=== PATIENT | male | born 1930 | race Caucasian/White ===

== ENCOUNTER 2018-07-25 14:59 | Inpatient (IN) ==
[2018-07-25] MEDS ORDERED: Acetaminophen 325 MG Tablet PO ONE (16:14)
--- NOTE | 2018-07-25 17:11 | ED ---
HPI General Chief Complaint: Fall Stated Complaint: Fall Back Pain/Bruising xSunday Time Seen by Provider: 07/25/18 15:28 Source: patient Mode of arrival: ambulatory Limitations: no limitations History of Present Illness HPI Narrative: 88-year-old male presents to the emergency room with his mechanic and welder for evaluation of back pain after falling 2 days ago. Patient was using his walker to go up a step at a restaurant when he lost his balance and fell backwards. Landed mostly on his mid back but also hit the back of his head on concrete. States fall was witnessed by son but there is no loss of consciousness. Patient has early Alzheimer's and is not the best historian. His mechanic and welder states since then he has appeared to be in pain memory movement. He has been receiving Aleve which his primary care physician recommended he stop taking. He saw his PCP today and they recommended he come here for x-rays of his back which is where his greatest pain is. He denies paresthesias or loss of bowel or bladder control. He takes a baby aspirin daily. Only history of hypertension and hypercholesterolemia. MD complaint: Reports fall Onset (ago): day(s) Fall from: standing Fall witnessed: yes, by family Loss of consciousness: none Prolonged down time: no Symptoms prior to fall: Reports none Context: Reports tripped/slipped Location of injury: Reports head and back Severity: mild Quality: Reports aching and throbbing Associated symptoms (after fall): Reports denies Related Data Home Medications Medication Instructions Recorded Confirmed Crestor 07/25/18 aspirin 81 mg PO DAILY 07/25/18 07/25/18 losartan 07/25/18 Allergies Allergy/AdvReac Type Severity Reaction Status Date / Time No Known Allergies Allergy Verified 07/25/18 15:08 Review of Systems ROS: all other systems reviewed are negative PMFSH Medical History Medical History HTN (hypertension) (Acute) High cholesterol (Acute) History of skin cancer (Acute) Surgical History Surgical History History of eye surgery (Acute) Social History Social History Substance History: No History of Abuse Smoking Status: Former smoker How Often Do You Have a Drink Containing Alcohol: 2 to 4 times a month Immunization History Tetanus Immunization: Unsure Exam Narrative Exam Narrative: GENERAL: Well-nourished, elderly male in no acute distress. Afebrile. Ambulatory. SKIN: Focused skin assessment warm/dry. Superficial abrasion over the thoracic spine. Small hematoma of the back of the parietal scalp. HEAD: Normocephalic. EYES: No scleral icterus. No injection or drainage. NECK: Supple, trachea midline. No JVD or lymphadenopathy. Full range of motion. CARDIOVASCULAR: Regular rate and rhythm without murmurs, gallops, or rubs. RESPIRATORY: Breath sounds equal bilaterally. No accessory muscle use. MUSCULOSKELETAL: No cyanosis, or edema. BACK: Tenderness over the thoracic spine. No obvious deformity. No CVA tenderness. No lumbar tenderness. NEUROLOGICAL: Awake and alert. Cranial nerves II through XII intact. Motor and sensory grossly within normal limits. Normal speech. No pronator drift in upper or lower extremities. Five out of 5 muscle strength in all muscle groups. Normal finger to nose test. Normal heel to joseph test. Course Initial Documented Vital Signs Temperature 98.4 F 07/25/18 15:03 Pulse Rate 99 H 07/25/18 15:03 Respiratory Rate 16 07/25/18 15:03 Blood Pressure 127/58 L 07/25/18 15:03 Pulse Oximetry 97 07/25/18 15:03 Last Documented Vital Signs Temperature 98.4 F 07/25/18 15:03 Pulse Rate 94 H 07/25/18 22:44 Respiratory Rate 18 07/25/18 22:44 Blood Pressure 150/63 H 07/25/18 22:44 Pulse Oximetry 94 L 07/25/18 22:44 Medical Decision Making MDM Narrative Medical decision making narrative: 88 year-old male with history of early Alzheimer's, hypertension, and hypercholesterolemia presents to the emergency room with his mechanic and welder for evaluation of back pain after mechanical fall 2 days ago. Patient states he tripped on a step and fell backwards landing directly on his mid back. He also hit the back of his head. There was no loss of consciousness. He went to his primary care physician for checkup today and his PCP recommended to come to the emergency room for evaluation and imaging of his back given how tender he was. Physical exam is reassuring. No focal neurological deficits. Patient gets occasionally confused which according to his mechanic and welder and son are consistent with his baseline. He has no significant midline tenderness of the spine. Negative straight leg raise bilaterally. There is a small posterior parietal scalp hematoma that is tender to palpation. CT of the head, neck, and x-rays of thoracic spine ordered. CT of the head shows 1.5 cm focal hematoma at the posterior medial right parietal lobe without midline shift. The cervical spine CT and thoracic x-rays are negative for acute abnormality. I spoke to the neurosurgeon on-call, Dr. Rodney, who recommends admission with consultation to his service. I spoke to the trauma surgeon, Dr. Weinstein, who recommends CT of the chest and abdomen. CT of the chest and abdomen are negative for acute traumatic injury including of the spine , multiple chronic findings noted. He will be transferred to the main hospital under the trauma service. Because patient is stable with no significant neurological findings, he can be admitted to the floor rather than the intensive care unit. He and his son understand and agree to plan. Medical Screen Exam Complete: Yes Emergency Medical Condition: Yes Differential Diagnosis Differential Diagnosis: Contusion, abrasion, fracture, strain, sprain Lab Data Result diagrams: 07/25/18 18:00 07/25/18 18:00 Lab Results 07/25/18 07/25/18 07/25/18 Range/Units 18:00 18:00 18:00 CBC w Diff Auto diff final WBC 7.4 (4.0-11.0) th/mm3 RBC 4.48 L (4.50-5.90) mil/mm3 Hgb 14.3 (13.0-17.0) gm/dL Hct 41.3 (39.0-51.0) % MCV 92.2 (80.0-100.0) fL MCH 32.0 (27.0-34.0) pg MCHC 34.7 (32.0-36.0) % RDW 13.3 (11.6-17.2) % Plt Count 201 (150-450) th/mm3 MPV 7.8 (7.0-11.0) fL Neut % (Auto) 67.4 (16.0-70.0) % Lymph % (Auto) 19.0 (9.0-44.0) % Morrison % (Auto) 9.9 H (0.0-8.0) % Eos % (Auto) 3.4 (0.0-4.0) % Baso % (Auto) 0.3 (0.0-2.0) % Neut # (Auto) 5.0 (1.8-7.7) th/mm3 Lymph # (Auto) 1.4 (1.0-4.8) th/mm3 Morrison # (Auto) 0.7 (0.0-0.9) th/mm3 Eos # (Auto) 0.3 (0.0-0.4) th/mm3 Baso # (Auto) 0.0 (0.0-0.2) th/mm3 WBC Differential . Differential Comment . PT 11.2 (9.8-11.6) sec INR 1.1 Ratio APTT 27.9 (23.4-31.7) sec Sodium 142 (136-145) meq/L Potassium 4.0 (3.5-5.1) meq/L Chloride 107 (98-107) meq/L Carbon Dioxide 27.2 (21.0-32.0) meq/L Anion Gap 8 (5-15) meq/L BUN 22 H (7-18) mg/dL Creatinine 0.88 (0.60-1.30) mg/dL Estimated GFR 82 L (>89) mL/min Random Glucose 87 (74-106) mg/dL Calcium 9.3 (8.5-10.1) mg/dL Total Bilirubin 1.6 H (0.2-1.0) mg/dL AST 46 H (15-37) U/L ALT 33 (12-78) U/L Alkaline Phosphatase 83 (45-117) U/L Total Protein 7.0 (6.4-8.2) g/dL Albumin 3.9 (3.4-5.0) g/dL Urine Color (Yellw/Straw) Urine Clarity (Clear) Urine pH (5.0-8.5) Ur Specific Holt (1.002-1.035) Urine Protein (Neg-Trace) mg/dL Urine Glucose (UA) (Negative) mg/dL Urine Ketones (Negative) mg/dL Urine Occult Blood (Negative) Urine Nitrate (Negative) Urine Bilirubin (Negative) Urine Urobilinogen (Less than 2) mg/dL Ur Leukocyte Esterase (Negative) Urine RBC (0-3) /hpf Urine WBC (0-5) /hpf Ur Squamous Epith Cells (0-5) /hpf Micro UA Comment Ur Microscopic Review Urine Culture Comments 07/25/18 Range/Units 18:00 CBC w Diff WBC (4.0-11.0) th/mm3 RBC (4.50-5.90) mil/mm3 Hgb (13.0-17.0) gm/dL Hct (39.0-51.0) % MCV (80.0-100.0) fL MCH (27.0-34.0) pg MCHC (32.0-36.0) % RDW (11.6-17.2) % Plt Count (150-450) th/mm3 MPV (7.0-11.0) fL Neut % (Auto) (16.0-70.0) % Lymph % (Auto) (9.0-44.0) % Morrison % (Auto) (0.0-8.0) % Eos % (Auto) (0.0-4.0) % Baso % (Auto) (0.0-2.0) % Neut # (Auto) (1.8-7.7) th/mm3 Lymph # (Auto) (1.0-4.8) th/mm3 Morrison # (Auto) (0.0-0.9) th/mm3 Eos # (Auto) (0.0-0.4) th/mm3 Baso # (Auto) (0.0-0.2) th/mm3 WBC Differential Differential Comment PT (9.8-11.6) sec INR Ratio APTT (23.4-31.7) sec Sodium (136-145) meq/L Potassium (3.5-5.1) meq/L Chloride (98-107) meq/L Carbon Dioxide (21.0-32.0) meq/L Anion Gap (5-15) meq/L BUN (7-18) mg/dL Creatinine (0.60-1.30) mg/dL Estimated GFR (>89) mL/min Random Glucose (74-106) mg/dL Calcium (8.5-10.1) mg/dL Total Bilirubin (0.2-1.0) mg/dL AST (15-37) U/L ALT (12-78) U/L Alkaline Phosphatase (45-117) U/L Total Protein (6.4-8.2) g/dL Albumin (3.4-5.0) g/dL Urine Color Yellow (Yellw/Straw) Urine Clarity Clear (Clear) Urine pH 5.5 (5.0-8.5) Ur Specific Holt 1.025 (1.002-1.035) Urine Protein Negative (Neg-Trace) mg/dL Urine Glucose (UA) Negative (Negative) mg/dL Urine Ketones Negative (Negative) mg/dL Urine Occult Blood Negative (Negative) Urine Nitrate Negative (Negative) Urine Bilirubin Negative (Negative) Urine Urobilinogen 1.0 (Less than 2) mg/dL Ur Leukocyte Esterase Negative (Negative) Urine RBC 0-3 (0-3) /hpf Urine WBC 6-8 H (0-5) /hpf Ur Squamous Epith Cells 0-5 (0-5) /hpf Micro UA Comment Culture not ind Ur Microscopic Review Microscopic reviewed Urine Culture Comments Culture not ind Imaging Data Radiologist's impression: Cervical Spine CT 07/25/18 16:39 CONCLUSION: 1. No fracture. 2. Advanced multilevel degenerative changes. 3. Moderate central protrusion at C3-4 causing mild/moderate canal stenosis. Head CT 07/25/18 16:39 CONCLUSION: 1. 1.5 cm focal hematoma at the posterior medial right parietal lobe. 2. Age-related atrophy. . Thoracic Spine X-Ray 07/25/18 16:39 CONCLUSION: No acute abnormality seen. Abdomen/Pelvis CT 07/25/18 20:23 CONCLUSION: 1. No acute traumatic abnormality demonstrated within the abdomen or pelvis. 2. Nonacute findings as described. Chest CT 07/25/18 20:23 CONCLUSION: 1. No evidence of acute traumatic injury of the chest. 2. Mild dependent atelectasis of both lungs. 3. Coronary artery calcification. Mild cardiomegaly. Discharge Plan Discharge Disposition Patient Disposition: Transfer To [facility] [place] Discharge Condition Condition: Stable Discharge Order Discharge Orders: ED Use Only Admit Order (Routine); Ordered 07/25/18 Ordered By: Vivienne Valdovinos Physicians Team ED Provider: Cornelius López ED Midlevel Provider: Vivienne Valdovinos Primary Care Provider: Jessica Lee Attending Provider: Pat Weinstein Other Providers: Fredis Rodney Discharge Interventions Interventions: Vital Signs Last Done: 07/25/18 20:28 Status ED Status: Admitted Patient
--- NOTE | 2018-07-25 17:20 | XR ---
EXAM DATE: 07/25/2018 5:15 PM EST AGE/SEX: 88 years / Male INDICATIONS: Upper back pain, post fall. CLINICAL DATA: This is the patient's initial encounter. Patient reports that signs and symptoms have been present for 3 days and indicates a pain score of 8/10. MEDICAL/SURGICAL HISTORY: None. None. COMPARISON: POI, CT UROGRAM, 10/30/2015. . FINDINGS: The thoracic vertebral bodies appear normally aligned. There appear to be syndesmophytes throughout t he thoracic spine raising the possibility of ankylosing spondylitis. The disc spaces appear preserved . 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 CONCLUSION: No acute abnormality seen. Electronically signed by: Sang Mderano MD 07/25/2018 5:18 PM EST
--- NOTE | 2018-07-25 17:49 | CT ---
EXAM DATE: 07/25/2018 5:39 PM EST AGE/SEX: 88 years / Male INDICATIONS: Fell and hit back of head. CLINICAL DATA: This is the patient's initial encounter. Patient reports that signs and symptoms have been present for 2 days and indicates a pain score of 8/10. MEDICAL/SURGICAL HISTORY: Hypercholesterolemia. Hypertension. Skin cancer. . Eye surgery. RADIATION DOSE: 66.57 CTDI (mGy) COMPARISON: None. TECHNIQUE: CT of the head without contrast. Using automated exposure control and adjustment of the mA and/or kV according to patient size, radiation dose was kept as low as reasonably achievable to ob tain optimal diagnostic quality images. DICOM format image data is available electronically for revi ew and comparison. FINDINGS: Cerebrum: There is a focal 1.5 cm area of increased density seen at the posterior medial right parie rosaura lobe concerning for a small focal area of hemorrhage. The ventricles and cortical sulci are widen ed. No evidence of midline shift, mass lesion, or acute infarction. No extraaxial fluid collection s are seen. Posterior Fossa: The cerebellum and brainstem are intact. The 4th ventricle is midline. The cerebe llopontine angle is unremarkable. Extracranial: The visualized portion of the orbits is intact. Skull: The calvaria is intact. No evidence of skull fracture. CONCLUSION: 1. 1.5 cm focal hematoma at the posterior medial right parietal lobe. 2. Age-related atrophy. . Electronically signed by: Sang Medrano MD 07/25/2018 5:47 PM EST
--- NOTE | 2018-07-25 17:58 | CT ---
EXAM DATE: 07/25/2018 5:52 PM EST AGE/SEX: 88 years / Male INDICATIONS: Fell and hit back of head. CLINICAL DATA: This is the patient's initial encounter. Patient reports that signs and symptoms have been present for 2 days and indicates a pain score of 8/10. MEDICAL/SURGICAL HISTORY: Hypercholesterolemia. Hypertension. Skin cancer. . Eye surgery. RADIATION DOSE: 26.64 CTDI (mGy) COMPARISON: No prior exams available for comparison. TECHNIQUE: Contiguous axial images were obtained using helical multirow detector technique. The vol umetric data was post-processed with multiplanar reconstruction in oblique axial, sagittal, and coron al planes. Using automated exposure control and adjustment of the mA and/or kV according to patient s ize, radiation dose was kept as low as reasonably achievable to obtain optimal diagnostic quality lupis ges. DICOM format image data is available electronically for review and comparison. FINDINGS: Vertebrae: Normal vertebral body height. Advanced multilevel degenerative changes. Multiple anterior bridging osteophytes. Alignment: Normal. No subluxation. C2-3: The bony spinal canal is normal in size. No evidence of disc bulge or herniation. The neural foramina are bilaterally patent. C3-4: Moderate central disc protrusion abuts the ventral thecal sac and causes mild/moderate canal s tenosis. Moderate bilateral neural foraminal narrowing.. C4-5: The bony spinal canal is normal in size. No evidence of disc bulge or herniation. Moderate bi lateral neural foraminal narrowing. C5-6: The bony spinal canal is normal in size. No evidence of disc bulge or herniation. Moderate bi lateral neural foraminal narrowing. C6-7: Posterior disc osteophyte complex abuts the ventral thecal sac. No canal stenosis. Moderate bi lateral neural foraminal narrowing. C7-T1: The bony spinal canal is normal in size. No evidence of disc bulge or herniation. The neura l foramina are bilaterally patent. CONCLUSION: 1. No fracture. 2. Advanced multilevel degenerative changes. 3. Moderate central protrusion at C3-4 causing mild/moderate canal stenosis. Electronically signed by: Dae Crowley MD 07/25/2018 5:57 PM EST
[2018-07-25 18:34] LABS: Baso % (Auto) 0.3 % (0.0-2.0); Eos # (Auto) 0.3 th/mm3 (0.0-0.4); Eos % (Auto) 3.4 % (0.0-4.0); Hematocrit 41.3 % (39.0-51.0); Hemoglobin 14.3 gm/dL (13.0-17.0); Lymph # (Auto) 1.4 th/mm3 (1.0-4.8); Mean Corpuscular HGB Conc 34.7 % (32.0-36.0); Mean Corpuscular Volume 92.2 fL (80.0-100.0); Mean Platelet Volume 7.8 fL (7.0-11.0); Mono # (Auto) 0.7 th/mm3 (0.0-0.9); Mono % (Auto) 9.9 % (0.0-8.0); Neut % (Auto) 67.4 % (16.0-70.0); Platelet Count 201 th/mm3 (150-450); Red Blood Count 4.48 mil/mm3 (4.50-5.90); Red Cell Distribution Width 13.3 % (11.6-17.2); White Blood Count 7.4 th/mm3 (4.0-11.0)
[2018-07-25 18:37] LABS: Bilirubin,Urine Negative (Negative); Clarity,Urine Clear (Clear); Color,Urine Yellow (Yellw/Straw); Glucose,Urine (UA) Negative (Negative); Leukocyte Esterase,Urine Negative (Negative); Nitrite,Urine Negative (Negative); PH,Urine 5.5 (5.0-8.5); Specific Gravity,Urine 1.025 (1.002-1.035)
[2018-07-25 18:41] LABS: Chloride 107 meq/L (98-107); Sodium 142 meq/L (136-145)
[2018-07-25 18:45] LABS: Albumin 3.9 g/dL (3.4-5.0); Blood Urea Nitrogen 22 mg/dL (7-18)
[2018-07-25 18:47] LABS: Activated Partial Thrombo Time 27.9 sec (23.4-31.7); INR 1.1 Ratio; Prothrombin Time 11.2 sec (9.8-11.6)
[2018-07-25 18:48] LABS: Aspartate Aminotransferase 46 U/L (15-37); Glomerular Filtration Rate 82 mL/min (>89)
[2018-07-25 18:49] LABS: RBC,Urine 0-3 /hpf (0-3); Squamous Epithelial Cell,Urine 0-5 /hpf (0-5)
[2018-07-25 18:51] LABS: Alkaline Phosphatase 83 U/L (45-117)
[2018-07-25 19:17] LABS: Anion Gap 8 meq/L (5-15); Calcium 9.3 mg/dL (8.5-10.1); Carbon Dioxide 27.2 meq/L (21.0-32.0)
[2018-07-25 19:18] LABS: Glucose,Random 87 mg/dL (74-106)
[2018-07-25 19:21] LABS: Alanine Aminotransferase 33 U/L (12-78)
--- NOTE | 2018-07-25 21:36 | CT ---
EXAM DATE: 07/25/2018 9:31 PM EST AGE/SEX: 88 years / Male INDICATIONS: Trauma. Fall. Posterior chest pain. CLINICAL DATA: This is the patient's initial encounter. Patient reports that signs and symptoms have been present for 2 days and indicates a pain score of 8/10. MEDICAL/SURGICAL HISTORY: Hypertension. None. RADIATION DOSE: 15.53 CTDI (mGy) ; Combined studies COMPARISON: No prior exams available for comparison. TECHNIQUE: Multiple contiguous axial images were obtained through the chest during bolus infusion of 100 ml Omnipaque 350 (iohexol) nonionic water-soluble contrast as a cumulative dose for multiple ex ams. Images were obtained in suspended respiration using multiple row detector helical technique. Using automated exposure control and adjustment of the mA and/or kV according to patient size, radiat ion dose was kept as low as reasonably achievable to obtain optimal diagnostic quality images. DICOM format image data is available electronically for review and comparison. FINDINGS: There is mild atelectasis of both lung bases. No pleural effusions/hemothorax. No pneumothorax. No acute abnormalities are seen of the heart or mediastinum. There is mild cardiomegaly. Coronary art aurora calcification noted. No lymphadenopathy. Disc space narrowing with bridging syndesmophytes seen throughout the thoracic spine. No fracture or other acute abnormality demonstrated of the visualized osseous structures. CONCLUSION: 1. No evidence of acute traumatic injury of the chest. 2. Mild dependent atelectasis of both lungs. 3. Coronary artery calcification. Mild cardiomegaly. Electronically signed by: Sang Moralez MD 07/25/2018 9:35 PM EST
--- NOTE | 2018-07-25 21:41 | CT ---
EXAM DATE: 07/25/2018 9:34 PM EST AGE/SEX: 88 years / Male INDICATIONS: Trauma. Fall. Lower back pain. CLINICAL DATA: This is the patient's initial encounter. Patient reports that signs and symptoms have been present for 2 days and indicates a pain score of 8/10. MEDICAL/SURGICAL HISTORY: Hypertension. None. ORAL CONTRAST: No oral contrast ingested. RADIATION DOSE: 15.50 CTDI (mGy) ; Combined studies COMPARISON: POI, CT UROGRAM, 10/30/2015. . TECHNIQUE: Multiple contiguous axial images were obtained through the abdomen and pelvis following b olus infusion of 100 ml Omnipaque 350 (iohexol) nonionic water-soluble contrast as a cumulative dos e for multiple exams. No oral contrast ingested. Using automated exposure control and adjustment of the mA and/or kV according to patient size, radiation dose was kept as low as reasonably achievable t o obtain optimal diagnostic quality images. DICOM format image data is available electronically for review and comparison. FINDINGS: The liver, spleen, pancreas, adrenal glands and kidneys are all intact. Small bilateral adrenal nodul es are unchanged. There are small, benign cysts of both kidneys. Also a 2.8 cm cyst of the right hepa tic lobe. Nonobstructing stones are seen of the left kidney, 2 mm of the upper pole, 18 mm of the mid zone to l ower pole and 19 mm of the lower pole. Tortuous and atherosclerotic aorta and iliac arteries. No abdominal aortic aneurysm. Prostate is enlarged. No fractures or other acute bony abnormalities are demonstrated. Degenerative changes with bridging s yndesmophytes seen throughout the thoracolumbar spine. There is discontinuity of an anterior syndesmo phyte at T10/T11 but I believe this is developmental rather than a fracture. No adjacent soft tissue changes. CONCLUSION: 1. No acute traumatic abnormality demonstrated within the abdomen or pelvis. 2. Nonacute findings as described. Electronically signed by: Sang Moralez MD 07/25/2018 9:39 PM EST
[2018-07-26] MEDS: Sod Chloride 0.9% Inj 1,000 ML IV.CONT SCH ×2 (02:02→18:04)
[2018-07-26] MEDS ORDERED: Chlorhexidine Gluconate 2% 1 Pack (2 Cloths) TOPICAL SCH (04:00)
[2018-07-26] MEDS ORDERED: Chlorhexidine Gluconate 2% 1 Pack (2 Cloths) TOPICAL PRN (04:00)
[2018-07-26 07:14] LABS: Baso % (Auto) 0.5 % (0.0-2.0); Eos # (Auto) 0.2 th/mm3 (0.0-0.4); Eos % (Auto) 2.7 % (0.0-4.0); Hematocrit 38.3 % (39.0-51.0); Hemoglobin 13.6 gm/dL (13.0-17.0); Lymph # (Auto) 1.1 th/mm3 (1.0-4.8); Lymph % (Auto) 16.2 % (9.0-44.0); Mean Corpuscular HGB Conc 35.5 % (32.0-36.0); Mean Corpuscular Hemoglobin 32.5 pg (27.0-34.0); Mean Corpuscular Volume 91.4 fL (80.0-100.0); Mono # (Auto) 0.8 th/mm3 (0.0-0.9); Mono % (Auto) 11.3 % (0.0-8.0); Neut # (Auto) 4.7 th/mm3 (1.8-7.7); Neut % (Auto) 69.3 % (16.0-70.0); Platelet Count 165 th/mm3 (150-450); Red Blood Count 4.18 mil/mm3 (4.50-5.90); Red Cell Distribution Width 13.9 % (11.6-17.2); White Blood Count 6.8 th/mm3 (4.0-11.0)
--- NOTE | 2018-07-26 07:22 | P.HPCC ---
History of Present Illness Primary Care Physician: Jessica Lee MD History of Present Illness: 88 y.o male transfer from after a fall 2 days ago.Patient has been complaining of back pain.Work up shows small SAH-no headache,baseline mental status,HD normal,neuro intact. Inpatient Certification: I certify that the inpatient services were ordered in accordance with Medicare regulations governing the order. This includes certification that hospital inpatient services are reasonable and necessary and in the case of services not specified as inpatient-only under 42 CFR 419.22(n), that they are appropriately provided as inpatient services in accordance to with the 2-midnight benchmark under 43 CFR 412.3(e) Estimated Total Length of Stay (Days): 3 Plans for Post Hospital Care: Home [facility] - History History Provided By: Patient - Medical History Medical History: Medical History (Last Reviewed 07/26/18 @ 07:03 by Paulino Mendoza) HTN (hypertension) High cholesterol History of skin cancer - Surgical History Surgical History: Surgical History (Last Reviewed 07/26/18 @ 07:03 by Paulino Mendoza) History of eye surgery - Tobacco History Smoking Status: Former smoker - Alcohol History How Often Do You Have a Drink Containing Alcohol: 2 to 4 times a month - Substance Use History Substance History: No History of Abuse - Immunization History Tetanus Immunization: Unsure Medications and Allergies Active Medications: Active Medications Al Hydroxide/Mg Hydroxide (Milk Of Matt More) 30 ml PO BID [facility] Chlorhexidine Gluconate (Chlorhexidine 2% Cloth) 3 pack TOPICAL DAILY@0400 KAR[facility] Stop: 07/31/18 03:59 Last Admin: 07/26/18 04:03 Dose: Not Given Chlorhexidine Gluconate (Chlorhexidine 2% Cloth) 3 pack TOPICAL DAILY@0400 PRN PRN Reason: Extra cloth needed Stop: 07/31/18 03:59 Docusate Sodium (Colace) 100 mg PO BID KARLI Famotidine (Pepcid) 20 mg PO BID KARLI Sodium Chloride (Ns Inj) 1,000 mls @ 60 mls/hr IV.CONT .[id number] [facility] Last Admin: 07/26/18 02:02 Dose: 60 mls/hr Acetaminophen (Ofirmev Inj) 1,000 mg in 100 mls @ 400 mls/hr IV.SIG Q6H PRN PRN Reason: PAIN SCALE 1 TO 10 Ondansetron HCl (Zofran Inj) 4 mg IV.PUSH Q6H PRN PRN Reason: NAUSEA OR VOMITING Sodium Chloride (Ns Flush) 2 ml IV.FLUSH UNSCH PRN PRN Reason: FLUSH AFTER USING IV ACCESS Allergies Allergy/AdvReac Type Severity Reaction Status Date / Time No Known Allergies Allergy Verified 07/25/18 15:08 Home Medications Medication Instructions Recorded Confirmed Type Crestor 07/25/18 History aspirin 81 mg PO DAILY 07/25/18 07/25/18 History losartan 07/25/18 History Results - Labs CBC & Chem 7: 07/25/18 18:00 07/25/18 18:00 Labs: Short CBC 07/25/18 Range/Units 18:00 WBC 7.4 (4.0-11.0) th/mm3 Hgb 14.3 (13.0-17.0) gm/dL Hct 41.3 (39.0-51.0) % Plt Count 201 (150-450) th/mm3 BMP 07/25/18 18:00 Sodium 142 Potassium 4.0 Chloride 107 Carbon Dioxide 27.2 BUN 22 H Creatinine 0.88 Calcium 9.3 Liver Function 07/25/18 Range/Units 18:00 Total Bilirubin 1.6 H (0.2-1.0) mg/dL AST 46 H (15-37) U/L ALT 33 (12-78) U/L Alkaline Phosphatase 83 (45-117) U/L Albumin 3.9 (3.4-5.0) g/dL Urine 07/25/18 Range/Units 18:00 Urine Color Yellow (Yellw/Straw) Urine Clarity Clear (Clear) Urine pH 5.5 (5.0-8.5) Ur Specific [place] 1.025 (1.002-1.035) Urine Protein Negative (Neg-Trace) mg/dL Urine Glucose (UA) Negative (Negative) mg/dL - Imaging Impressions Cervical Spine CT 07/25/18 16:39 CONCLUSION: 1. No fracture. 2. Advanced multilevel degenerative changes. 3. Moderate central protrusion at C3-4 causing mild/moderate canal stenosis. Head CT 07/25/18 16:39 CONCLUSION: 1. 1.5 cm focal hematoma at the posterior medial right parietal lobe. 2. Age-related atrophy. . Thoracic Spine X-Ray 07/25/18 16:39 CONCLUSION: No acute abnormality seen. Abdomen/Pelvis CT 07/25/18 20:23 CONCLUSION: 1. No acute traumatic abnormality demonstrated within the abdomen or pelvis. 2. Nonacute findings as described. Chest CT 07/25/18 20:23 CONCLUSION: 1. No evidence of acute traumatic injury of the chest. 2. Mild dependent atelectasis of both lungs. 3. Coronary artery calcification. Mild cardiomegaly. Exam Vital signs: Vital Signs 07/25/18 15:03 07/25/18 17:59 07/25/18 19:09 Temperature 98.4 F Pulse Rate 99 H 77 Respiratory Rate 16 16 14 Blood Pressure 127/58 L 145/64 H Pulse Oximetry 97 94 L 07/25/18 20:28 07/25/18 22:44 07/26/18 02:14 Temperature 97.9 F Pulse Rate 87 94 H 96 H Respiratory Rate 18 18 18 Blood Pressure 149/56 H 150/63 H 142/97 H Pulse Oximetry 93 L 94 L 95 07/26/18 04:00 07/26/18 05:13 Temperature 97.9 F Pulse Rate 90 Respiratory Rate 19 16 Blood Pressure 139/94 H Pulse Oximetry 93 L Intake & Output 07/25/18 07/26/18 07/26/18 18:59 06:59 18:59 Weight 64 kg 63.4 kg Other: # Incontinent Voids 1 - Constitutional no acute distress - Routine HEENT Exam Head: Present: normocephalic, atraumatic Eye: Present: EOMI, PERRL, normal accommodation ENT: Present: mucous membranes moist, oropharynx clear - Routine Neck Exam Present: supple, full ROM - Routine Respiratory Exam Present: CTA bilaterally - Routine Cardiovascular Exam Present: RRR - Routine Abdominal Exam Present: soft, normoactive bowel sounds - Routine Extremities Exam Present: full ROM, pulses intact, normal capillary refill - Routine Neurological Exam Present: alert, normal tone, vision grossly intact Caprini VTE Risk Assessment Caprini VTE Risk Assessment: Moderate/High Risk (score >= 2) VTE Pharmacological Exception Reason: High risk for bleeding (tra) Caprini Risk Assessment Model: Point Value = 1 Point Value = 2 Point Value = 3 Point Value = 5 Age 41-60 Minor surgery BMI > 25 kg/m2 Swollen legs Varicose veins or History of unexplained or recurrent spontaneous Oral contraceptives or hormone replacement Sepsis (< 1 month) Serious lung disease, including pneumonia (< 1 month) Abnormal pulmonary function Acute myocardial infarction Congestive heart failure (< 1 month) History of inflammatory bowel disease Medical patient at bed rest Age 61-74 Arthroscopic surgery Major open surgery (> 45 min) Laparoscopic surgery (> 45 min) Malignancy Confined to bed (> 72 hours) Immobilizing plaster cast Central venous access Age >= 75 History of VTE Family history of VTE Factor V Leiden Prothrombin [id number] Lupus anticoagulant Anticardiolipin antibodies Elevated serum homocysteine Heparin-induced thrombocytopenia Other congenital or acquired thrombophilia Stroke (< 1 month) Elective arthroplasty Hip, pelvis, or leg fracture Acute spinal cord injury (< 1 month) Prophylaxis Regimen: Total Risk Factor Score Risk Level Prophylaxis Regimen 0-1 Low Early ambulation 2 Moderate Order ONE of the following: *Sequential Compression Device (SCD) *Heparin 5000 units SQ BID 3-4 Higher Order ONE of the following medications: *Heparin 5000 units SQ TID *Enoxaparin/Lovenox 40 mg SQ daily (WT < 150 kg, CrCl > 30 mL/min) *Enoxaparin/Lovenox 30 mg SQ daily (WT < 150 kg, CrCl > 10-29 mL/min) *Enoxaparin/Lovenox 30 mg SQ BID (WT < 150 kg, CrCl > 30 mL/min) AND/OR *Sequential Compression Device (SCD) 5 or more Highest Order ONE of the following medications: *Heparin 5000 units SQ TID (Preferred with Epidurals) *Enoxaparin/Lovenox 40 mg SQ daily (WT < 150 kg, CrCl > 30 mL/min) *Enoxaparin/Lovenox 30 mg SQ daily (WT < 150 kg, CrCl > 10-29 mL/min) *Enoxaparin/Lovenox 30 mg SQ BID (WT < 150 kg, CrCl > 30 mL/min) AND *Sequential Compression Device (SCD) Assessment and Plan - Assessment and Plan Plan: small SAH 2 days old admit to floor for observation NS consult
[2018-07-26 07:23] LABS: Anion Gap 8 meq/L (5-15); Blood Urea Nitrogen 15 mg/dL (7-18); Calcium 8.5 mg/dL (8.5-10.1); Carbon Dioxide 25.6 meq/L (21.0-32.0); Chloride 110 meq/L (98-107); Glomerular Filtration Rate Greater Than 89 mL/min (>89); Glucose,Random 87 mg/dL (74-106); Potassium 3.5 meq/L (3.5-5.1); Sodium 144 meq/L (136-145)
--- NOTE | 2018-07-26 08:12 | P.PN ---
Subjective Interval history: Trauma PTD: 4. HD: 2 Patient OOB and sitting in a recliner chair. No distress noted. Numerous visitors at bedside. Patient remains very [place], with a history of Alzheimer's. Physical Exam Vital signs: Vital Signs 07/25/18 15:03 07/25/18 17:59 07/25/18 19:09 Temperature 98.4 F Pulse Rate 99 H 77 Respiratory Rate 16 16 14 Blood Pressure 127/58 L 145/64 H Pulse Oximetry 97 94 L 07/25/18 20:28 07/25/18 22:44 07/26/18 02:14 Temperature 97.9 F Pulse Rate 87 94 H 96 H Respiratory Rate 18 18 18 Blood Pressure 149/56 H 150/63 H 142/97 H Pulse Oximetry 93 L 94 L 95 07/26/18 04:00 07/26/18 05:13 07/26/18 08:00 Temperature 97.9 F 97.4 F L Pulse Rate 90 89 Respiratory Rate 19 16 20 Blood Pressure 139/94 H 137/61 Pulse Oximetry 93 L 93 L Intake & Output 07/25/18 07/26/18 07/26/18 18:59 06:59 18:59 Weight 64 kg 63.4 kg Other: # Incontinent Voids 1 Narrative: GENERAL: This is a 88-year-old male OOB in a recliner chair. No distress noted. SKIN: Warm and dry. HEAD: Atraumatic. Normocephalic. EYES: PERRLA ENT: No nasal bleeding or discharge. Mucous membranes pink and moist. NECK: Trachea midline. No JVD. CARDIOVASCULAR: Regular rate and rhythm. RESPIRATORY: No accessory muscle use. Lungs are clear to auscultation. Breath sounds equal bilaterally. No distress or dyspnea. GASTROINTESTINAL: BS + x 4 quads. Abdomen soft, non-tender, nondistended. MUSCULOSKELETAL: Extremities without cyanosis, or edema. + peripheral pulses x 4 extremities. Warm with good capillary refill and sensation. MAEW. NEUROLOGICAL: Awake and alert. Normal speech and pattern. Results - Labs CBC & Chem 7: 07/26/18 05:17 07/26/18 05:17 Laboratory Results - last 24 hr 07/25/18 07/25/18 07/25/18 18:00 18:00 18:00 CBC w Diff Auto diff final WBC 7.4 RBC 4.48 L Hgb 14.3 Hct 41.3 MCV 92.2 MCH 32.0 MCHC 34.7 RDW 13.3 Plt Count 201 MPV 7.8 Neut % (Auto) 67.4 Lymph % (Auto) 19.0 [place] % (Auto) 9.9 H Eos % (Auto) 3.4 Baso % (Auto) 0.3 Neut # (Auto) 5.0 Lymph # (Auto) 1.4 [place] # (Auto) 0.7 Eos # (Auto) 0.3 Baso # (Auto) 0.0 WBC Differential . Differential Comment . PT 11.2 INR 1.1 APTT 27.9 Sodium 142 Potassium 4.0 Chloride 107 Carbon Dioxide 27.2 Anion Gap 8 BUN 22 H Creatinine 0.88 Estimated GFR 82 L Random Glucose 87 Calcium 9.3 Total Bilirubin 1.6 H AST 46 H ALT 33 Alkaline Phosphatase 83 Total Protein 7.0 Albumin 3.9 Urine Color Urine Clarity Urine pH Ur Specific [place] Urine Protein Urine Glucose (UA) Urine Ketones Urine Occult Blood Urine Nitrate Urine Bilirubin Urine Urobilinogen Ur Leukocyte Esterase Urine RBC Urine WBC Ur Squamous Epith Cells Micro UA Comment Ur Microscopic Review Urine Culture Comments Nasal Screen MRSA (PCR) 07/25/18 07/26/18 07/26/18 18:00 02:45 05:17 CBC w Diff WBC 6.8 RBC 4.18 L Hgb 13.6 Hct 38.3 L MCV 91.4 MCH 32.5 MCHC 35.5 RDW 13.9 Plt Count 165 MPV 8.0 Neut % (Auto) 69.3 Lymph % (Auto) 16.2 [place] % (Auto) 11.3 H Eos % (Auto) 2.7 Baso % (Auto) 0.5 Neut # (Auto) 4.7 Lymph # (Auto) 1.1 [place] # (Auto) 0.8 Eos # (Auto) 0.2 Baso # (Auto) 0.0 WBC Differential . Differential Comment Auto diff final PT INR APTT Sodium Potassium Chloride Carbon Dioxide Anion Gap BUN Creatinine Estimated GFR Random Glucose Calcium Total Bilirubin AST ALT Alkaline Phosphatase Total Protein Albumin Urine Color Yellow Urine Clarity Clear Urine pH 5.5 Ur Specific [place] 1.025 Urine Protein Negative Urine Glucose (UA) Negative Urine Ketones Negative Urine Occult Blood Negative Urine Nitrate Negative Urine Bilirubin Negative Urine Urobilinogen 1.0 Ur Leukocyte Esterase Negative Urine RBC 0-3 Urine WBC 6-8 H Ur Squamous Epith Cells 0-5 Micro UA Comment Culture not ind Ur Microscopic Review Microscopic reviewed Urine Culture Comments Culture not ind Nasal Screen MRSA (PCR) Not detected 07/26/18 05:17 CBC w Diff WBC RBC Hgb Hct MCV MCH MCHC RDW Plt Count MPV Neut % (Auto) Lymph % (Auto) [place] % (Auto) Eos % (Auto) Baso % (Auto) Neut # (Auto) Lymph # (Auto) [place] # (Auto) Eos # (Auto) Baso # (Auto) WBC Differential Differential Comment PT INR APTT Sodium 144 Potassium 3.5 Chloride 110 H Carbon Dioxide 25.6 Anion Gap 8 BUN 15 Creatinine 0.57 L Estimated GFR Greater than 89 Random Glucose 87 Calcium 8.5 D Total Bilirubin AST ALT Alkaline Phosphatase Total Protein Albumin Urine Color Urine Clarity Urine pH Ur Specific [place] Urine Protein Urine Glucose (UA) Urine Ketones Urine Occult Blood Urine Nitrate Urine Bilirubin Urine Urobilinogen Ur Leukocyte Esterase Urine RBC Urine WBC Ur Squamous Epith Cells Micro UA Comment Ur Microscopic Review Urine Culture Comments Nasal Screen MRSA (PCR) - Imaging Impressions Cervical Spine CT 07/25/18 16:39 CONCLUSION: 1. No fracture. 2. Advanced multilevel degenerative changes. 3. Moderate central protrusion at C3-4 causing mild/moderate canal stenosis. Head CT 07/25/18 16:39 CONCLUSION: 1. 1.5 cm focal hematoma at the posterior medial right parietal lobe. 2. Age-related atrophy. . Thoracic Spine X-Ray 07/25/18 16:39 CONCLUSION: No acute abnormality seen. Abdomen/Pelvis CT 07/25/18 20:23 CONCLUSION: 1. No acute traumatic abnormality demonstrated within the abdomen or pelvis. 2. Nonacute findings as described. Chest CT 07/25/18 20:23 CONCLUSION: 1. No evidence of acute traumatic injury of the chest. 2. Mild dependent atelectasis of both lungs. 3. Coronary artery calcification. Mild cardiomegaly. Assessment and Plan - Assessment (1) TBI (traumatic brain injury) Code(s): S06.9X9A - Unspecified intracranial injury with loss of consciousness of unspecified duration, initial encounter Status: Acute - Plan [place]: This is a 88-year-old male who sustained a mechanical fall 2 days ago. Patient was using his walker to go up a step, when he lost his balance and fell backwards. He landed on his mid back, but also hit the back of his head. No LOC. INJURIES: RIGHT parietal lobe hematoma Atelectesis PMHx: Alzheimer's. HTN. HLD. Skin cancer. Procedures: Consults: Neurosurgery. Case management. Diet: Regular diet. Tolerating po diet. Encourage good po intake with each meal. Pulmonary: Encourage good pulmonary toileting. IS at bedside and pt encouraged to use. Rationale for use explained to patient, and verbalized understanding. PAIN Management: OFIRMEV IV. Activity: OOB. PT and OT ordered. GI prophylaxis: Pepcid 20 mg BID po Bowel regimen: Colace. MOM. LBM: 0 DVT prophylaxis: Mechanical VTE with SCDs. Chemical management TBD. DC Planning: Case management consulted for assistance with final discharge disposition. PT recommends HHC versus short-term rehab. Clarissa choi [place] is following patient for possible admission if needed. Emotional support provided to patient and family at bedside and plan of care discussed. Discussed with RN at bedside. Discussed pt condition and plan of care with collaborating trauma surgeon. Patient is hemodynamically stable and being managed on the med/surg floor. The trauma team will round each day, and evaluate plan of care on a daily basis. RIGHT parietal lobe hematoma Neurosurgery consulted Awaiting assessment and plan Pain management Serial neuro checks CT brain for any change in neurological status Seizure precautions Encourage out of bed PT and OT ordered Bowel regimen SCDs for DVT prophylaxis HTN HLD Alzheimer's Vital signs every 4 hours and as needed Obtain home medication list with doses and frequencies Resume as appropriate Monitor mental status closely (1) TBI (traumatic brain injury) Qualifiers: Encounter type: initial encounter Loss of consciousness presence/duration: without LOC Qualified Code(s): S06.9X0A - Unspecified intracranial injury without loss of consciousness, initial encounter
[2018-07-26] MEDS ORDERED: Docusate Sodium 100 MG Capsule PO SCH (09:00)
[2018-07-26] MEDS ORDERED: Famotidine 20 MG Tablet PO SCH (09:00)
--- NOTE | 2018-07-26 12:07 | P.DCO ---
- Physical Therapy Order: Evaluate and treat, Improve ambulation, Strength and gait training - Home Health Nursing Order: Medical education, Signs/symptoms of disease process, Medication education-adverse effect, Nursing assessment with vital signs - Case Management Consult Case Management Consult-Home Health: Yes - Certification I have seen patient Rashel Gibson on 07/26/18. My clinical findings support the need for the requested home health care services because: Limited mobility due to disease progression, Patient has SOB, Deconditioned with increased weakness, Medication compliance is questionable, Limited ability to care for self, High risk of falls I certify that my clinical findings support that this patient is homebound because: Post-op weakness, Impaired cognitive ability/safety, Unsteady gait/balance, Unsafe to leave home unassisted, Need for psychosocial assistance, Unable to use public transportation
--- NOTE | 2018-07-26 15:05 | P.CONNS ---
History of Present Illness Service: neurosurg Consult date: 07/26/18 Requesting Physician: Pat Weinstein Reason for Consult: TBI Primary Care Provider: Jessica Lee MD Chief Complaint: Headaches History of Present Illness: This is a 88 y.o male transfer from after a fall 2 days ago.Patient has been complaining of back pain. No LOC. No seizure activity. No tongue bitting. no incontinence of stoo, ot urine. Moving all 4 extremities. No Work up shows small SAH-no headache,baseline mental status,HD normal,neuro intact. [facility] - History History Provided By: Patient - Medical History Medical History: Medical History (Last Reviewed 07/26/18 @ 13:50 by Otoniel Springer) HTN (hypertension) High cholesterol History of skin cancer - Surgical History Surgical History: Surgical History (Last Reviewed 07/26/18 @ 13:50 by Otoniel Springer) History of eye surgery - Tobacco History Smoking Status: Former smoker - Alcohol History How Often Do You Have a Drink Containing Alcohol: 2 to 4 times a month - Substance Use History Substance History: No History of Abuse - Immunization History Tetanus Immunization: Unsure Medications and Allergies Active Medications: Active Medications Al Hydroxide/Mg Hydroxide (Milk Of Matt [place]) 30 ml PO BID [facility] Last Admin: 07/26/18 09:00 Dose: Not Given Chlorhexidine Gluconate (Chlorhexidine 2% Cloth) 3 pack TOPICAL DAILY@0400 [facility] Stop: 07/31/18 03:59 Last Admin: 07/26/18 04:03 Dose: Not Given Chlorhexidine Gluconate (Chlorhexidine 2% Cloth) 3 pack TOPICAL DAILY@0400 PRN PRN Reason: Extra cloth needed Stop: 07/31/18 03:59 Docusate Sodium (Colace) 100 mg PO BID [facility] Last Admin: 07/26/18 09:00 Dose: Not Given Famotidine (Pepcid) 20 mg PO BID [facility] Last Admin: 07/26/18 09:00 Dose: Not Given Sodium Chloride (Ns Inj) 1,000 mls @ 60 mls/hr IV.CONT .[id number] [facility] Last Admin: 07/26/18 02:02 Dose: 60 mls/hr Acetaminophen (Ofirmev Inj) 1,000 mg in 100 mls @ 400 mls/hr IV.SIG Q6H PRN PRN Reason: PAIN SCALE 1 TO 10 Ondansetron HCl (Zofran Inj) 4 mg IV.PUSH Q6H PRN PRN Reason: NAUSEA OR VOMITING Sodium Chloride (Ns Flush) 2 ml IV.FLUSH UNSCH PRN PRN Reason: FLUSH AFTER USING IV ACCESS Allergies Allergy/AdvReac Type Severity Reaction Status Date / Time No Known Allergies Allergy Verified 07/25/18 15:08 Home Medications Medication Instructions Recorded Confirmed Type Crestor 07/25/18 History aspirin 81 mg PO DAILY 07/25/18 07/25/18 History losartan 07/25/18 History Exam Vital signs: Vital Signs 07/25/18 15:03 07/25/18 17:59 07/25/18 19:09 Temperature 98.4 F Pulse Rate 99 H 77 Respiratory Rate 16 16 14 Blood Pressure 127/58 L 145/64 H Pulse Oximetry 97 94 L 07/25/18 20:28 07/25/18 22:44 07/26/18 02:14 Temperature 97.9 F Pulse Rate 87 94 H 96 H Respiratory Rate 18 18 18 Blood Pressure 149/56 H 150/63 H 142/97 H Pulse Oximetry 93 L 94 L 95 07/26/18 04:00 07/26/18 05:13 07/26/18 08:00 Temperature 97.9 F 97.4 F L Pulse Rate 90 89 Respiratory Rate 19 16 20 Blood Pressure 139/94 H 137/61 Pulse Oximetry 93 L 93 L 07/26/18 12:00 Temperature 97.8 F Pulse Rate 77 Respiratory Rate 20 Blood Pressure 126/60 Pulse Oximetry 96 Intake & Output 07/25/18 07/26/18 07/26/18 18:59 06:59 18:59 Weight 64 kg 63.4 kg Other: # Incontinent Voids 1 Results - Laboratory Findings CBC and BMP: 07/26/18 05:17 07/26/18 05:17 Abnormal lab findings: Abnormal Labs 07/25/18 07/25/18 07/25/18 18:00 18:00 18:00 RBC 4.48 L Hct [place] % (Auto) 9.9 H Chloride BUN 22 H Creatinine Estimated GFR 82 L Total Bilirubin 1.6 H AST 46 H Urine WBC 6-8 H 07/26/18 07/26/18 05:17 05:17 RBC 4.18 L Hct 38.3 L [place] % (Auto) 11.3 H Chloride 110 H BUN Creatinine 0.57 L Estimated GFR Total Bilirubin AST Urine WBC Assessment and Plan - Plan I have reviewed the clinical and radiological findings Cervical Spine CT 07/25/18 16:39 CONCLUSION: 1. No fracture. 2. Advanced multilevel degenerative changes. 3. Moderate central protrusion at C3-4 causing mild/moderate canal stenosis. Head CT 07/25/18 16:39 CONCLUSION: 1. 1.5 cm focal hematoma at the posterior medial right parietal lobe. 2. Age-related atrophy. . Thoracic Spine X-Ray 07/25/18 16:39 CONCLUSION: No acute abnormality seen. Abdomen/Pelvis CT 07/25/18 20:23 CONCLUSION: 1. No acute traumatic abnormality demonstrated within the abdomen or pelvis. 2. Nonacute findings as described. Chest CT 07/25/18 20:23 CONCLUSION: 1. No evidence of acute traumatic injury of the chest. 2. Mild dependent atelectasis of both lungs. 3. Coronary artery calcification. Mild cardiomegaly. Neuro: neuro checks in a serial fashion. No surgical treatment. SAH is 2 days old. Cleared to go home per neusorudgery standpoint Pulmonary: aggressive pulmonary toilette, nasotracheal suction, and breathing treatments with nebulizers. Daily PT and OT Renal: Continue to monitor closely urine output, BUN and creatinine Endocrine: Continue to Monitor serial Acu checks and SSI as needed in detail ID continue to monitor for signs of infection Continue Protonix for stress ulcer prophylaxis Continue Abner hose and SCD's for DVT prophylaxis Further recommendations will be provided depending on the patient's clinical evaluation and follow up studies. Caprini VTE Risk Assessment Caprini VTE Risk Assessment: Moderate/High Risk (score >= 2) VTE Pharmacological Exception Reason: High risk for bleeding (tra) Caprini Risk Assessment Model: Point Value = 1 Point Value = 2 Point Value = 3 Point Value = 5 Age 41-60 Minor surgery BMI > 25 kg/m2 Swollen legs Varicose veins or History of unexplained or recurrent spontaneous Oral contraceptives or hormone replacement Sepsis (< 1 month) Serious lung disease, including pneumonia (< 1 month) Abnormal pulmonary function Acute myocardial infarction Congestive heart failure (< 1 month) History of inflammatory bowel disease Medical patient at bed rest Age 61-74 Arthroscopic surgery Major open surgery (> 45 min) Laparoscopic surgery (> 45 min) Malignancy Confined to bed (> 72 hours) Immobilizing plaster cast Central venous access Age >= 75 History of VTE Family history of VTE Factor V Leiden Prothrombin [id number] Lupus anticoagulant Anticardiolipin antibodies Elevated serum homocysteine Heparin-induced thrombocytopenia Other congenital or acquired thrombophilia Stroke (< 1 month) Elective arthroplasty Hip, pelvis, or leg fracture Acute spinal cord injury (< 1 month) Prophylaxis Regimen: Total Risk Factor Score Risk Level Prophylaxis Regimen 0-1 Low Early ambulation 2 Moderate Order ONE of the following: *Sequential Compression Device (SCD) *Heparin 5000 units SQ BID 3-4 Higher Order ONE of the following medications: *Heparin 5000 units SQ TID *Enoxaparin/Lovenox 40 mg SQ daily (WT < 150 kg, CrCl > 30 mL/min) *Enoxaparin/Lovenox 30 mg SQ daily (WT < 150 kg, CrCl > 10-29 mL/min) *Enoxaparin/Lovenox 30 mg SQ BID (WT < 150 kg, CrCl > 30 mL/min) AND/OR *Sequential Compression Device (SCD) 5 or more Highest Order ONE of the following medications: *Heparin 5000 units SQ TID (Preferred with Epidurals) *Enoxaparin/Lovenox 40 mg SQ daily (WT < 150 kg, CrCl > 30 mL/min) *Enoxaparin/Lovenox 30 mg SQ daily (WT < 150 kg, CrCl > 10-29 mL/min) *Enoxaparin/Lovenox 30 mg SQ BID (WT < 150 kg, CrCl > 30 mL/min) AND *Sequential Compression Device (SCD)
--- NOTE | 2018-07-27 10:46 | P.DS ---
Date of admission: 07/25/18 21:56 Primary care physician: Jessica Lee MD Attending physician on discharge: Bettina Palacios Anticipated date of discharge: 07/26/18 Brief History from admission: Fall DS: Diagnosis - Discharge Diagnosis (1) TBI (traumatic brain injury) Status: Acute DS: Summary Hospital Course: [place]: This is a 88-year-old male who sustained a mechanical fall 2 days ago. Patient was using his walker to go up a step, when he lost his balance and fell backwards. He landed on his mid back, but also hit the back of his head. No LOC. INJURIES: RIGHT parietal lobe hematoma Atelectesis PMHx: Alzheimer's. HTN. HLD. Skin cancer. Procedures: Consults: Neurosurgery. Case management. The patient is now tolerating a po diet. Eating and drinking well. Pain is being managed well with PO pain medications, he has not required narcotic pain meds, therefore he can continue with OTC Tylenol for pain at home. Pt is having regular bowel movements, and have recommended to patient to continue with stool softeners while taking narcotic pain medications to prevent constipation. Pt has been participating in PT and OT while admitted at [place] and has been ambulating with their assistance and independently. PT recommends [facility]. Face to face completed. Pt has a walker at home. All follow up appointments have been provided and discussed with the patient. It is recommended that the patient keeps all his follow up appointments for continued recovery. Patient's condition and plan of care discussed with collaborating trauma surgeon. He is agreeable to plan for discharge today. Therefore, the patient is stable to be safely discharged home w/ [facility] from a trauma surgery standpoint. Thank you for allowing us to participate in his care. We wish Rashel the best in his recovery. RIGHT parietal lobe hematoma Neurosurgery consulted and assisting in management and care Non-surgical Pain management Serial neuro checks CT brain for any change in neurological status Seizure precautions Encourage out of bed PT and OT ordered Bowel regimen SCDs for DVT prophylaxis Pt has been cleared for DC by NS f/u with NS outpatient HTN HLD Alzheimer's Vital signs every 4 hours and as needed Obtain home medication list with doses and frequencies Resume as appropriate Monitor mental status closely - Time Spent with Patient Total time spent providing and/or coordinating discharge services: Greater than 30 minutes - Quality: VTE Deep Vein Thrombosis/Pulmonary Embolism Present on Admission: No Exam Vital signs: Vital Signs 07/26/18 12:00 07/26/18 16:15 Temperature 97.8 F 98.0 F Pulse Rate 77 80 Respiratory Rate 20 20 Blood Pressure 126/60 142/65 H Pulse Oximetry 96 97 Intake & Output 07/26/18 07/27/18 07/27/18 18:59 06:59 18:59 Intake Total 1000 / 1000 Balance 1000 / 1000 Intake: IV 1000 / 1000 NS Inj 1,000 ML @ 60 mls/hr IV. 1000 / 1000 CONT .[id number] KARLI Rx#: [id number] Other: # Incontinent Voids 1 Results Procedures completed during hospitalization: . - Impressions ITS Impressions Cervical Spine CT 07/25/18 16:39 CONCLUSION: 1. No fracture. 2. Advanced multilevel degenerative changes. 3. Moderate central protrusion at C3-4 causing mild/moderate canal stenosis. Head CT 07/25/18 16:39 CONCLUSION: 1. 1.5 cm focal hematoma at the posterior medial right parietal lobe. 2. Age-related atrophy. . Thoracic Spine X-Ray 07/25/18 16:39 CONCLUSION: No acute abnormality seen. Abdomen/Pelvis CT 07/25/18 20:23 CONCLUSION: 1. No acute traumatic abnormality demonstrated within the abdomen or pelvis. 2. Nonacute findings as described. Chest CT 07/25/18 20:23 CONCLUSION: 1. No evidence of acute traumatic injury of the chest. 2. Mild dependent atelectasis of both lungs. 3. Coronary artery calcification. Mild cardiomegaly. Discharge Plan - Discharge Disposition Patient Disposition: W/Home Health Service - Discharge Condition Condition: Stable - Discharge Order Discharge Orders: Discharge Order (Routine); Ordered 07/26/18 Ordered By: Bettina Palacios ED Use Only Admit Order (Routine); Ordered 07/25/18 Ordered By: Vivienne Valdovinos - Physicians Team Primary Care Provider: Jessica Lee Attending Provider: Pat Weinstein Other Providers: Fredis Rodney MD ; Yossi Breaux MD ; Dylan Taylor MD ; [employer] ; Geronimo Spear MD ; Eli Guevara ARNP ; Aayush Hoyt MD ; Pat Weinstein MD ; Brian Yeh ARNP ; Bettina Palacios MD ; [facility]
== END 2018-07-26 19:18 | disposition home health service (06) ==
LOC: PHEFT 14:59 → PHEDA 21:56 → N05 07-26 01:00
PROVIDERS: ADMIT Surgery Trauma Surgery; ATTEND Surgery Trauma Surgery
CPT/HCPCS: 70450; 71260; 72072; 72125; 74177; 80048; 80053; 81001; 85025; 85610; 85730; 87641; 94150; 97162; 97166; J7030; Q9967